=== PATIENT | male | born 1955 | race Caucasian/White ===

== ENCOUNTER → 2024-09-28 08:11 | Outpatient (REF) | payer MEDICARE, BC, SELFPAY | LOC: RCS 08:11 | PROVIDERS: ATTENDING PHYSICIAN Internal Medicine Cardiovascular Disease; FAMILY PHYSICIAN Family Medicine | DX: I51.7 Cardiomegaly (principal); R06.09 Other forms of dyspnea | CPT/HCPCS: 93306 ==

== ENCOUNTER → 2025-08-24 14:47 | Outpatient (REF) | payer MEDICARE, BC, SELFPAY | LOC: RCS 14:47 | PROVIDERS: ATTENDING PHYSICIAN Internal Medicine Cardiovascular Disease; FAMILY PHYSICIAN Family Medicine | DX: R06.09 Other forms of dyspnea (principal) | CPT/HCPCS: 93306 ==

== ENCOUNTER → 2025-09-02 07:14 | Outpatient (REF) | payer MEDICARE, BC, SELFPAY | LOC: HWRCS 07:14 | PROVIDERS: ATTENDING PHYSICIAN Internal Medicine Cardiovascular Disease; FAMILY PHYSICIAN Family Medicine | DX: R06.09 Other forms of dyspnea (principal) | CPT/HCPCS: 78452; 93017; A9500 ==